=== PATIENT | female | born 1950 | race Caucasian/White ===

== ENCOUNTER → 2016-11-30 | Outpatient (CLI) | payer MEDICARE, OTHER | LOC: MW.CHFP 08:00 | PROVIDERS: ATTEND Emergency Medicine | DX: N81.10 Cystocele, unspecified (principal); Z23 Encounter for immunization | CPT/HCPCS: 90670; G0009; G0463 ==

== ENCOUNTER 2017-01-31 07:41 | Day surgery (SDC) | payer MEDICARE, OTHER ==
[~2017-01-31 07:41] MED LIST: Lactated Ringers 1,000 ML IV SCH
[2017-01-31] MEDS ORDERED: Bupivacaine 0.25% 10 ML SDV ONE (08:38)
[2017-01-31] MEDS ORDERED: Lidocaine 1% with EPINEPHrine 1:100,000 20 ML MDV ONE (08:38)
[2017-01-31] MEDS ORDERED: Fluorescein 5 ML Vial ONE (08:38)
--- NOTE | 2017-01-31 08:48 | PCM.PREANE ---
Preanesthetic Assessment - Anesthesia/Transfusion/Family Hx Anesthesia History: Prior Anesthesia Without Reaction Family History of Anesthesia Reaction: No Transfusion History: Prior Transfusion Without Reaction Intubation History: Unknown - Review of Systems General: No Symptoms Pulmonary: No Symptoms Cardiovascular: No Symptoms Gastrointestinal: No Symptoms Neurological: No Symptoms Other: Reports: None - Physical Assessment NPO Status Date: 01/30/17 NPO Status Time: 23:00 O2 Sat by Pulse Oximetry: 96 Respiratory Rate: 16 Vital Signs: Last Vital Signs Temp 36.5 C 01/31/17 08:09 Pulse 71 01/31/17 08:09 Resp 16 01/31/17 08:09 BP 123/68 01/31/17 08:09 Pulse Ox 96 01/31/17 08:09 Height: 1.68 m Weight: 83.915 kg ASA Class: 2 Mental Status: Alert & Oriented x3 Airway Class: Mallampati = 2 Dentition: Reports: Dentures (upper and lower) Thyro-Mental Finger Breadths: 3 Mouth Opening Finger Breadths: 3 ROM/Head Extension: Full Lungs: Clear to Auscultation, Normal Respiratory Effort Cardiovascular: Regular Rate, Regular Rhythm - Allergies Allergies/Adverse Reactions: Allergies Allergy/AdvReac Type Severity Reaction Status Date / Time aspirin Allergy Hives Verified 04/18/15 20:59 Penicillins Allergy Cannot Verified 04/18/15 20:59 Remember tape Allergy Redness Uncoded 01/25/17 07:45 - Blood Blood Available: No - Anesthesia Plan Pre-Op Medication Ordered: None - Acknowledgements Anesthesia Type Planned: General Anesthesia Pt an Appropriate Candidate for the Planned Anesthesia: Yes Alternatives and Risks of Anesthesia Discussed w Pt/Guardian: Yes Pt/Guardian Understands and Agrees with Anesthesia Plan: Yes PreAnesthesia Questionnaire HEENT History: Reports: Glaucoma, Other (See Below) Other HEENT History: upper and lower dentures Gastrointestinal History: Reports: Colon Polyp, Diverticulosis, Other (See Below ) (dysphagia) Genitourinary History: Reports: Other (See Below) Other Genitourinary History: stress incontinence 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: Reports: Musculoskeletal History: Reports: Fracture Other Musculoskeletal History: hx fx arm Neurological History: Reports: Migraines, Other (See Below) (restless leg syndrome) Psychiatric History: Reports: Anxiety Endocrine/Metabolic History: Reports: Obesity/BMI 30+, Other (See Below) ( multinodular goiter) Hematologic History: Reports: Blood Transfusion(s), Iron Deficiency Other Dermatologic History: seborrheic keratosis - Past Surgical History Head Surgeries/Procedures: Reports: None GI Surgical History: Reports: Appendectomy, Cholecystectomy, Colonoscopy, EGD Female Surgical History: Reports: Breast Biopsy, Hysterectomy, Tubal Ligation Other Female Surgeries/Procedures: hx bladder repair, anterior colporrhaphy Endocrine Surgical History: Reports: Other (See Below) Other Endocrine Surgeries/Procedures: sub total thyroidectomy Oncologic Surgical History: Reports: Biopsy of Breast - SUBSTANCE USE Smoking Status *Q: Never Smoker Second Hand Smoke Exposure: No Recreational Drug Use History: No - HOME MEDS Home Medications: Home Meds Amitriptyline [Elavil] 20 mg PO DAILY 01/25/17 [History] Cholecalciferol (Vitamin D3) [Vitamin D3] 1,000 units PO DAILY 01/25/17 [History ] Cyanocobalamin (Vitamin B12) [Vitamin B12] 5,000 mcg PO DAILY 01/25/17 [History] Latanoprost [Xalatan 0.005% Ophth Soln] 1 drop EYEBOTH BEDTIME 01/25/17 [History ] PARoxetine [Paxil] 20 mg PO DAILY 01/25/17 [History] - CURRENT (IN HOUSE) MEDS Current Meds: Current Medications Lactated Ringer's (Ringers, Lactated) 1,000 mls @ 150 mls/hr IV ASDIRECTED [facility] Last Admin: 01/31/17 08:11 Dose: 150 mls/hr Discontinued Medications Bupivacaine HCl (Sensorcaine-Mpf 0.25%) Confirm Administered Dose 10 ml .ROUTE .STK-MED ONE Stop: 01/31/17 08:39 Fluorescein Sodium (Ak-Fluor) Confirm Administered Dose 5 ml .ROUTE .STK-MED ONE Stop: 01/31/17 08:39 Lidocaine/Epinephrine (Xylocaine 1% With Epinephrine 1:100,000) Confirm Administered Dose 20 ml .ROUTE .STK-MED ONE Stop: 01/31/17 08:39
[2017-01-31] MEDS ORDERED: Lidocaine 2% 5 ML SDV ONE (09:27)
[2017-01-31] MEDS ORDERED: Propofol 200 MG/20 ML SDV ONE ×2 (09:28→10:19)
[2017-01-31] MEDS ORDERED: fentaNYL 250 MCG/5 ML SDV ONE (09:28)
[2017-01-31] MEDS ORDERED: Midazolam 1 MG/ML 2 ML SDV ONE (09:28)
[2017-01-31] MEDS ORDERED: Octyl 2-Cyanoacrylate 1 Tube ONE (09:29)
[2017-01-31] MEDS ORDERED: Neomycin/Polymyxin B Bladder Irrigation 1 ML Amp ONE (09:30)
--- NOTE | 2017-01-31 11:10 | PCM.OPNOTE ---
- General Post-Op/Procedure Note Date of Surgery/Procedure: 01/31/17 Operative Procedure(s): anterior colporrhaphy with tension free vaginal taping Findings: second degree cystocele, urethral hypermobility. Cystoscopy showed no trauma to bladder mucosa Pre Op Diagnosis: symptomatic cystocele with urethral hypermobility and intrinsic sphincter deficiency. Post-Op Diagnosis: Same Anesthesia Technique: MAC Primary Surgeon: Amber Snider Secondary Surgeon: Eve Atkinson Anesthesia Provider: Jg Servin Pig Machine Operator Helper: Naseem Bermudez Pathology: none Fluid Replacement, Intraop: 1,000 EBL in mLs: 150 Drain/Tube Comments:: vaginal packing placed. Complications: None Known Condition: Good
[2017-01-31] MEDS ORDERED: Lactated Ringers 1,000 ML IV SCH (11:15)
[2017-01-31] MEDS ORDERED: Promethazine 25 MG/ML SDV IM PRN (11:15)
[2017-01-31] MEDS ORDERED: Ondansetron 4 MG/2 ML SDV IVPUSH PRN (11:15)
[2017-01-31] MEDS: fentaNYL 100 MCG/2 ML SDV IVPUSH PRN ×2 (11:20→11:29)
--- NOTE | 2017-01-31 11:45 | PCM.POSTAN ---
POST ANESTHESIA ASSESSMENT - MENTAL STATUS Mental Status: Alert, Oriented - RESPIRATORY Respiratory Status: respiratory rate WNL, Airway Patent, O2 Saturation Stable - CARDIOVASCULAR CV Status: Pulse Rate WNL - GASTROINTESTINAL GI Status: No Symptoms - PAIN Pain Score: 4 - POST OP HYDRATION Hydration Status: Adequate & Stable - OBSERVATIONS Free Text/Narrative:: no anesthesia problems
[2017-01-31] MEDS: Morphine 2 MG/ML Syringe IVPUSH PRN ×2 (12:41→15:49)
[2017-01-31] MEDS: Acetaminophen/oxyCODONE 325-5 MG Tab PO PRN ×2 (13:29→18:38)
--- NOTE | 2017-01-31 14:30 | OR ---
SURGEON: Amber Snider M.D. DATE OF PROCEDURE: 01/31/2017 PREOPERATIVE DIAGNOSIS: Symptomatic cystocele stress urinary incontinence with intrinsic sphincter deficiency. ANESTHESIA: MAC. 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 Atkinson IV FLUIDS: 1000 mL crystalloid. ESTIMATED BLOOD LOSS: 150 mL. COMPLICATIONS: None known. DISPOSITION: Stable to recovery. FINDINGS: No evidence of any trauma to the bladder mucosa on cystoscopy. Additionally, there was a second-degree cystocele, which had been repaired. BRIEF HISTORY: This is a 67-year-old female. She has a history of hysterectomy with anterior colporrhaphy in the remote past. She has had worsening stress urinary incontinence to the point where she is having to wear daily large poise pads. Evaluation revealed gross stress urinary incontinence and normal bladder capacity. She has been placed on Myrbetriq with some improvement of urgency symptoms, but persistent stress symptoms. She had urethral hypermobility with suspected intrinsic sphincter deficiency based on examination. She does have a small cystocele. I explained to her that this may not be required to be repaired, however, it is present and she wants to have it repaired at the time of the TVT. She was therefore consented for anterior colporrhaphy with transvaginal taping. She understands the risks of bleeding, infection, injury to bowel, bladder, blood vessels, ureter or other organs, risk of thromboembolic event, risk of urinary retention, and risk of approximately 30% of going home with a catheter. Understanding all these risks, she does desire to proceed. DESCRIPTION OF PROCEDURE: With the patient in dorsal lithotomy position, under adequate IV sedation, the perineum and vagina were prepped with Betadine and draped in usual fashion for vaginal surgery. SCDs were in place. She had received 2 g of Ancef IV and an appropriate time-out was held. Note was made that at the time of prep, there was a small laceration in the very atrophic vaginal mucosa and she was bleeding from this area. The weighted speculum was placed posteriorly approximately 2 cm cephalad from the urethral meatus. Allis clamp was placed. Hydrodissection was performed and an incision was made from this point upwards to the extent of the cystocele. The muscularis layer was then dissected from the overlying vaginal mucosa and reapproximated in the midline using multiple interrupted mattress sutures of 2-0 Polysorb. The vaginal mucosa was then reapproximated in the midline using a running suture of 0 Polysorb. This being completed, I did proceed with injection of normal saline diluted 2:1 with 20 mL of normal saline, 10 mL of 0.25% Marcaine, and 10 mL of 1% lidocaine with epinephrine. This was placed in the suburethral subvaginal mucosa area extending out toward the pubic ramus and also in the area of the retropubic space and the subcutaneous tissue immediately cephalad from the pubic symphysis. The landmarks were made 1 cm cephalad and 1.5 cm from midline of the pubic symphysis and stab incisions were made with an 11 blade scalpel. The vaginal mucosa was incised approximately 1 cm cephalad from the urethral meatus and extending 0.8 cm. Note was made of copious bleeding immediately upon incision of the vaginal mucosa. I did confirm that based on her chart she was taking no blood thinners. She is allergic to aspirin, she does not take ibuprofen, and there were no other medications that would increase her risk for bleeding. Therefore, I did choose to proceed with the taping. The dissection was performed with Metzenbaum scissors extending laterally beneath the vaginal mucosa towards the pubic ramus on the right and the left. With this being completed, the bladder had been completely drained. The catheter guide was placed into the catheter and the guide and catheter were placed into the bladder. The bladder was retracted towards the left. The right arm of the TVT tape with the trocar was guided through the vaginal mucosa laterally towards the mid clavicular line until the endopelvic fascia had been pierced and the handle was dropped. The needle was placed immediately posterior to the pubic symphysis until it had reached the skin incision. It was partially pulled through, but the needle was retained. I confirmed that there was no trauma to the lateral vaginal mucosa. I also performed a cystoscopy using 500 mL of sterile water to distend the bladder and there was no evidence of any trauma to the bladder mucosa. Therefore, the handle was removed, the needle was pulled through, the tape was cut from the needle, and retained with a Nazanin clamp. This was repeated on the opposite side. Again, draining the bladder, retracting the bladder toward the right, and the left arm of the TVT was placed without any difficulty. The cystoscopy was repeated again using 500 mL of sterile water and there was no evidence of any trauma to the bladder mucosa, therefore, the tape was pulled through. After the handle had been released, the bladder was refilled with 300 mL of nystatin solution. Nystatin solution was again placed into the sheath of the tape and the tape was adjusted until there was minimal leakage with coughing. With this being completed, a 24-Afghan dilator was placed through the urethral meatus with no resistance. Crede maneuver was performed without any leakage; therefore, the curved Weller scissors were placed between the tape and the urethra. The sheath of the tape was removed. The scissors were removed. The tape was trimmed beneath the skin. The skin was closed with skin glue. The vaginal mucosa incision was closed with a running locked suture of 3-0 Polysorb and the vagina was packed and a clean catheter was replaced into the bladder. Final sponge, needle, and instrument counts were reported as correct. There were no known complications. The patient was transferred to recovery in good condition. GRETCHEN MARTIN /[id number]
--- NOTE | 2017-01-31 18:42 | PCM.SURGPN ---
- General Info Date of Service: 01/31/17 POD#: 0 Functional Status: Reports: Pain Controlled, Tolerating Diet, Ambulating. Denies: Urinating (catheter just removed, starting voiding trial. ) - Review of Systems General: Reports: No Symptoms HEENT: Reports: No Symptoms Pulmonary: Reports: No Symptoms Cardiovascular: Reports: No Symptoms Gastrointestinal: Reports: No Symptoms Genitourinary: Reports: No Symptoms Musculoskeletal: Reports: No Symptoms Skin: Reports: No Symptoms Neurological: Reports: No Symptoms Psychiatric: Reports: No Symptoms - Patient Data Vitals - Most Recent: Last Vital Signs Temp 36.7 C 01/31/17 15:45 Pulse 72 01/31/17 15:45 Resp 18 01/31/17 15:45 BP 94/62 01/31/17 15:45 Pulse Ox 97 01/31/17 15:45 Weight - Most Recent: 83.915 kg I&O - Last 24 Hours: Intake & Output 01/31/17 01/31/17 01/31/17 06:59 14:59 22:59 Intake Total 2450 600 Output Total 65 600 Balance 2385 0 Med Orders - Current: Current Medications Amitriptyline HCl (Elavil) 20 mg PO DAILY [facility] Cholecalciferol (Vitamin D3) 1,000 units PO DAILY [facility] Fentanyl (Sublimaze) 50 mcg IVPUSH Q5M PRN PRN Reason: Pain (severe 7-10) Stop: 02/01/17 09:56 Last Admin: 01/31/17 11:29 Dose: 50 mcg Lactated Ringer's (Ringers, Lactated) 1,000 mls @ 125 mls/hr IV ASDIRECTED [facility] Latanoprost (Xalatan 0.005% Ophth Soln) 0 ml EYEBOTH BEDTIME [facility] Morphine Sulfate (Morphine) 2 mg IVPUSH Q2H PRN PRN Reason: Pain (severe 7-10) Last Admin: 01/31/17 15:49 Dose: 2 mg Non-Formulary Medication (Cyanocobalamin (Vitamin B12)) 5,000 mcg PO DAILY [facility] Ondansetron HCl (Zofran) 4 mg IVPUSH Q6H PRN PRN Reason: Nausea/Vomiting Oxycodone/Acetaminophen (Percocet 325-5 Mg) 1 tab PO Q4H PRN PRN Reason: Pain (moderate 4-6) Last Admin: 01/31/17 13:29 Dose: 1 tab Paroxetine HCl (Paxil) 20 mg PO DAILY [facility] Promethazine HCl (Phenergan) 25 mg IM Q6H PRN PRN Reason: Nausea/Vomiting Discontinued Medications Bupivacaine HCl (Sensorcaine-Mpf 0.25%) Confirm Administered Dose 10 ml .ROUTE .STK-MED ONE Stop: 01/31/17 08:39 Fentanyl (Sublimaze) Confirm Administered Dose 250 mcg .ROUTE .STK-MED ONE Stop: 01/31/17 09:29 Fluorescein Sodium (Ak-Fluor) Confirm Administered Dose 5 ml .ROUTE .STK-MED ONE Stop: 01/31/17 08:39 Lactated Ringer's (Ringers, Lactated) 1,000 mls @ 150 mls/hr IV ASDIRECTED [facility] Last Admin: 01/31/17 08:11 Dose: 150 mls/hr Lidocaine (Xylocaine-Mpf 2%) Confirm Administered Dose 10 ml .ROUTE .STK-MED ONE Stop: 01/31/17 09:28 Lidocaine/Epinephrine (Xylocaine 1% With Epinephrine 1:100,000) Confirm Administered Dose 20 ml .ROUTE .STK-MED ONE Stop: 01/31/17 08:39 Midazolam HCl (Versed 1 Mg/Ml) Confirm Administered Dose 2 mg .ROUTE .STK-MED ONE Stop: 01/31/17 09:29 Neomycin/Polymyxin (Neosporin Gu Irrigant) Confirm Administered Dose 1 ml .ROUTE .STK-MED ONE Stop: 01/31/17 09:31 Octyl Cyanoacrylate (Dermabond Advance) Confirm Administered Dose 1 applic .ROUTE .STK-MED ONE Stop: 01/31/17 09:30 Propofol (Diprivan 20 Ml) Confirm Administered Dose 400 mg .ROUTE .STK-MED ONE Stop: 01/31/17 09:29 Propofol (Diprivan 20 Ml) Confirm Administered Dose 200 mg .ROUTE .STK-MED ONE Stop: 01/31/17 10:20 - Exam General: Alert, Oriented HEENT: Pupils Equal Neck: Supple GI/Abdominal Exam: Soft, Non-Tender, No Organomegaly, No Distention, No Abnormal Bruit, No Mass, Pelvis Stable Extremities: Normal Inspection, Normal Range of Motion, Non-Tender, No Pedal Edema, Normal Capillary Refill Skin: Warm, Dry, Intact Neurological: No New Focal Deficit Psy/Mental Status: Alert, Normal Affect, Normal Mood Physical Findings Comment:: vaginal packing removed, minimal blood. - Problem List & Annotations (1) DAVIN (stress urinary incontinence, female) SNOMED Code(s): 41354510 Code(s): N39.3 - STRESS INCONTINENCE (FEMALE) (MALE) Status: Acute Current Visit: Yes (2) Cystocele SNOMED Code(s): 179402350, 583989162 Code(s): SGB4866 - Status: Acute Current Visit: Yes - Problem List Review Problem List Initiated/Reviewed/Updated: Yes - My Orders Last 24 Hours: Active Orders 24 hr Category Date Time Status Patient Status [ADT] Routine ADT 01/31/17 11:19 Active Antiembolic Devices [RC] PER UNIT ROUTINE Care 01/31/17 11:20 Active Notify Provider Intake and Out [RC] ASDIRECTED Care 01/31/17 11:19 Active Notify Provider Vital Signs [RC] ASDIRECTED Care 01/31/17 11:19 Active Oxygen Therapy [RC] ASDIRECTED Care 01/31/17 11:19 Active RT Incentive Spirometry [RC] Q2HWA Care 01/31/17 11:19 Active Ready for Discharge [RC] PER UNIT ROUTINE Care 01/31/17 18:38 Ordered Up With Assistance [RC] PER UNIT ROUTINE Care 01/31/17 11:19 Active Up ad Hemalatha [RC] PER UNIT ROUTINE Care 01/31/17 11:19 Active Urinary Catheter Removal [RC] Per Unit Routine Care 01/31/17 11:19 Active Vital Signs [RC] PER UNIT ROUTINE Care 01/31/17 11:19 Active Regular Diet [DIET] Diet 01/31/17 Dinner Active Acetaminophen/oxyCODONE [Percocet 325-5 MG] Med 01/31/17 11:15 Active 1 tab PO Q4H PRN Amitriptyline [Elavil] Med 02/01/17 09:00 Active 20 mg PO DAILY Cholecalciferol (Vitamin D3) [Vitamin D3] Med 02/01/17 09:00 Active 1,000 units PO DAILY Cyanocobalamin (Vitamin B12) Med 02/01/17 09:00 Active 5,000 mcg PO DAILY Lactated Ringers [Ringers, Lactated] 1,000 ml Med 01/31/17 11:15 Active IV ASDIRECTED Latanoprost [Xalatan 0.005% Ophth Soln] Med 01/31/17 21:00 Active 0 ml EYEBOTH BEDTIME [facility] Med 01/31/17 11:15 Active 2 mg IVPUSH Q2H PRN Ondansetron [Zofran] Med 01/31/17 11:15 Active 4 mg IVPUSH Q6H PRN PARoxetine [Paxil] Med 02/01/17 09:00 Active 20 mg PO DAILY Promethazine [Phenergan] Med 01/31/17 11:15 Active 25 mg IM Q6H PRN fentaNYL [Sublimaze] Med 01/31/17 09:56 Active 50 mcg IVPUSH Q5M PRN Peripheral IV Discontinue [OM.PC] Routine Oth 01/31/17 11:19 Ordered Sequential Compression Device [OM.PC] Per Unit Routine Oth 01/31/17 11:19 Ordered Resuscitation Status Routine Resus Stat 01/31/17 11:15 Ordered Medication Orders Amitriptyline HCl (Elavil) 20 mg PO DAILY [facility] Cholecalciferol (Vitamin D3) 1,000 units PO DAILY [facility] Fentanyl (Sublimaze) 50 mcg IVPUSH Q5M PRN PRN Reason: Pain (severe 7-10) Stop: 02/01/17 09:56 Last Admin: 01/31/17 11:29 Dose: 50 mcg Admin: 01/31/17 11:20 Dose: 50 mcg Lactated Ringer's (Ringers, Lactated) 1,000 mls @ 125 mls/hr IV ASDIRECTED [facility] Latanoprost (Xalatan 0.005% Ophth Soln) 0 ml EYEBOTH BEDTIME [facility] Morphine Sulfate (Morphine) 2 mg IVPUSH Q2H PRN PRN Reason: Pain (severe 7-10) Last Admin: 01/31/17 15:49 Dose: 2 mg Admin: 01/31/17 12:41 Dose: 2 mg Non-Formulary Medication (Cyanocobalamin (Vitamin B12)) 5,000 mcg PO DAILY [facility] Ondansetron HCl (Zofran) 4 mg IVPUSH Q6H PRN PRN Reason: Nausea/Vomiting Oxycodone/Acetaminophen (Percocet 325-5 Mg) 1 tab PO Q4H PRN PRN Reason: Pain (moderate 4-6) Last Admin: 01/31/17 13:29 Dose: 1 tab Paroxetine HCl (Paxil) 20 mg PO DAILY [facility] Promethazine HCl (Phenergan) 25 mg IM Q6H PRN PRN Reason: Nausea/Vomiting - Assessment Assessment (Free Text/Narrative):: POD#0 after anterior colporrhaphy with TVT. Stable, tolerating diet, ambulating. Pain improved after vaginal packing removed. - Plan Plan (Free Text/Narrative):: Voiding trial. Nurse will call me with result. Dismiss to home tonight (with catheter if she fails voiding trial) Continue Myrbetriq, may use Percocet for pain. Discharge instructions reviewed
[2017-01-31 20:15] VITALS: BP 96/66
[2017-01-31] MEDS ORDERED: Latanoprost 0.005% Ophth Soln 2.5 ML Bottle EYEBOTH SCH (21:00)
[2017-02-01] MEDS ORDERED: CYANOCOBALAMIN 5000 MCG PO SCH (09:00)
[2017-02-01] MEDS ORDERED: PARoxetine 20 MG Tab PO SCH (09:00)
[2017-02-01] MEDS ORDERED: Amitriptyline 10 MG Tab PO SCH (09:00)
[2017-02-01] MEDS ORDERED: Cholecalciferol (Vitamin D3) 1,000 Unit Tab PO SCH (09:00)
== END 2017-01-31 20:30 | disposition home or self-care (01) ==
LOC: MW.SDS 07:41 → MW.OB 11:19 → MW.SDS 20:30
PROVIDERS: ATTEND Obstetrics & Gynecology
DX: N39.3 Stress incontinence (female) (male) (principal); N36.43 Combined hypermobility of urethra and intrinsic sphincter deficiency; N81.10 Cystocele, unspecified; R11.0 Nausea; F41.9 Anxiety disorder, unspecified; G47.00 Insomnia, unspecified; G25.81 Restless legs syndrome; Z90.49 Acquired absence of other specified parts of digestive tract; Z98.51 Tubal ligation status; Z90.710 Acquired absence of both cervix and uterus; Z98.890 Other specified postprocedural states; Z88.6 Allergy status to analgesic agent; Z88.0 Allergy status to penicillin; Z91.09 Other allergy status, other than to drugs and biological substances
CPT/HCPCS: 57240; 57288; A9270; J2250; J2270; J3010; J7120; 00860; C1771; J2704

== ENCOUNTER 2019-07-30 06:32 | Day surgery (SDC) | payer MEDICARE, OTHER ==
[~2019-07-30 06:32] MED LIST changes: +Sodium Chloride 0.9% 10 ML SDV IV PRN; +Sodium Chloride 0.9% 10 ML Syringe FLUSH PRN; +Sodium Chloride 0.9% 2.5 ML Syringe FLUSH PRN
[2019-07-30] MEDS ORDERED: fentaNYL 100 MCG/2 ML SDV ONE (06:59)
[2019-07-30] MEDS ORDERED: Propofol 200 MG/20 ML SDV ONE ×2 (06:59→08:25)
[2019-07-30] MEDS ORDERED: Midazolam 1 MG/ML 2 ML SDV ONE (06:59)
--- NOTE | 2019-07-30 07:10 | PCM.PREANE ---
Preanesthetic Assessment - Anesthesia/Transfusion/Family Hx Anesthesia History: Prior Anesthesia Without Reaction Other Type of Anesthesia Reaction Comment: "mother had hard time waking up after surgery" Family History of Anesthesia Reaction: No Transfusion History: Prior Transfusion Without Reaction Intubation History: Unknown - Review of Systems General: No Symptoms Pulmonary: No Symptoms Cardiovascular: No Symptoms Gastrointestinal: Abdominal Pain, Other (h/o multiple polyps, change in bowel habits) Neurological: No Symptoms Other: Reports: None - Physical Assessment Vital Signs: Last Vital Signs Temp 36.7 C 07/30/19 06:45 Pulse 85 07/30/19 06:45 Resp 14 07/30/19 06:45 BP 116/83 07/30/19 06:45 Pulse Ox 97 07/30/19 06:45 Height: 5 ft 7 in Weight: 84.368 kg ASA Class: 2 Mental Status: Alert & Oriented x3 Airway Class: Mallampati = 2 Dentition: Reports: Dentures (upper) Thyro-Mental Finger Breadths: 3 Mouth Opening Finger Breadths: 2 ROM/Head Extension: Limited/Partial Lungs: Clear to Auscultation, Normal Respiratory Effort Cardiovascular: Regular Rate, Regular Rhythm - Allergies Allergies/Adverse Reactions: Allergies Allergy/AdvReac Type Severity Reaction Status Date / Time aspirin Allergy Hives Verified 07/24/19 12:44 Penicillins Allergy Hives Verified 07/24/19 12:44 tape Allergy Redness Uncoded 01/25/17 07:45 - Blood Blood Available: No - Anesthesia Plan Pre-Op Medication Ordered: None - Acknowledgements Anesthesia Type Planned: MAC Pt an Appropriate Candidate for the Planned Anesthesia: Yes Alternatives and Risks of Anesthesia Discussed w Pt/Guardian: Yes Pt/Guardian Understands and Agrees with Anesthesia Plan: Yes PreAnesthesia Questionnaire HEENT History: Reports: Glaucoma, Other (See Below) Other HEENT History: upper and lower dentures, glasses for reading Cardiovascular History: Reports: Heart Murmur Other Cardiovascular History: recently diagnosed heart murmur Gastrointestinal History: Reports: Colon Polyp, Diverticulosis Genitourinary History: Reports: None 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: Reports: Musculoskeletal History: Reports: Fracture, Osteoporosis Other Musculoskeletal History: hx fx arm Neurological History: Reports: Other (See Below) Other Neuro History: restless leg syndrome Psychiatric History: Reports: Anxiety Endocrine/Metabolic History: Reports: Osteopenia, Osteoporosis, Other (See Below ) (multinodular goiter) Hematologic History: Reports: Blood Transfusion(s) Immunologic History: Reports: None Oncologic (Cancer) History: Reports: None Dermatologic History: Reports: None - Past Surgical History Head Surgeries/Procedures: Reports: None HEENT Surgical History: Reports: Cataract Surgery GI Surgical History: Reports: Appendectomy, Cholecystectomy, Colonoscopy (7 polyps last year), EGD Female Surgical History: Reports: Breast Biopsy, Hysterectomy, Tubal Ligation Other Female Surgeries/Procedures: hx cystocele repair, anterior colporrhaphy , Endocrine Surgical History: Reports: Thyroidectomy (subtotal), Other (See Below) Other Endocrine Surgeries/Procedures: nodule removed from thyroidectomy Musculoskeletal Surgical History: Reports: Other (See Below) (foot surgery) Other Musculoskeletal Surgeries/Procedures:: surgery for "tennis elbow" - SUBSTANCE USE Smoking Status *Q: Former Smoker Tobacco Use Within Last Twelve Months: No Recreational Drug Use History: No - HOME MEDS Home Medications: Home Meds Amitriptyline [Elavil] 3 tab PO BEDTIME PRN 01/25/17 [History] Latanoprost [Xalatan 0.005% Ophth Soln] 1 drop EYEBOTH BEDTIME 01/25/17 [History ] PARoxetine [Paxil] 20 mg PO DAILY 01/25/17 [History] - CURRENT (IN HOUSE) MEDS Current Meds: Current Medications Lactated Ringer's (Ringers, Lactated) 1,000 mls @ 125 mls/hr IV ASDIRECTED [facility] Last Admin: 07/30/19 06:55 Dose: 125 mls/hr Sodium Chloride (Saline Flush) 10 ml FLUSH ASDIRECTED PRN PRN Reason: Keep Vein Open Sodium Chloride (Saline Flush) 2.5 ml FLUSH ASDIRECTED PRN PRN Reason: Keep Vein Open Sodium Chloride (Saline Flush) 10 ml FLUSH ASDIRECTED PRN PRN Reason: Keep Vein Open Sodium Chloride (Saline Flush) 2.5 ml FLUSH ASDIRECTED PRN PRN Reason: Keep Vein Open Sodium Chloride (Normal Saline) 10 ml IV ASDIRECTED PRN PRN Reason: IV Use Discontinued Medications Fentanyl (Sublimaze) Confirm Administered Dose 100 mcg .ROUTE .STK-MED ONE Stop: 07/30/19 07:00 Midazolam HCl (Versed 1 Mg/Ml) Confirm Administered Dose 2 mg .ROUTE .STK-MED ONE Stop: 07/30/19 07:00 Propofol (Diprivan 20 Ml) Confirm Administered Dose 200 mg .ROUTE .STK-MED ONE Stop: 07/30/19 07:00
--- NOTE | 2019-07-30 08:49 | PCM.OPNOTE ---
- General Post-Op/Procedure Note Date of Surgery/Procedure: 07/30/19 Operative Procedure(s): Diagnostic colonoscopy with polypectomy Findings: 1 transverse colon polyp, 2 sigmoid colon polyps, 2 descending colon polyps Pre Op Diagnosis: History of multiple colon polyps Post-Op Diagnosis: Multiple colon polyps Anesthesia Technique: EVON Primary Surgeon: Vangie Foreman Condition: Good
--- NOTE | 2019-07-30 08:56 | PCM.POSTAN ---
POST ANESTHESIA ASSESSMENT - MENTAL STATUS Mental Status: Alert, Oriented - VITAL SIGNS Vital Signs: Last Vital Signs Temp 36.7 C 07/30/19 06:45 Pulse 68 07/30/19 08:50 Resp 10 L 07/30/19 08:50 BP 93/60 07/30/19 08:50 Pulse Ox 92 L 07/30/19 08:50 - RESPIRATORY Respiratory Status: Respiratory Rate WNL, Airway Patent, O2 Saturation Stable - CARDIOVASCULAR CV Status: Pulse Rate WNL, Blood Pressure Stable - GASTROINTESTINAL GI Status: No Symptoms - PAIN Pain Score: 0 - POST OP HYDRATION Hydration Status: Adequate & Stable - OBSERVATIONS Free Text/Narrative:: No anesthesia problems
[2019-07-30 09:10] VITALS: BP 101/68; PULSE 69
--- NOTE | 2019-07-30 09:42 | PCM48HPAN ---
Post Anesthesia Note - EVALUATION WITHIN 48HRS OF ANESTHETIC Vital Signs in Normal Range: Yes Patient Participated in Evaluation: Yes Respiratory Function Stable: Yes Airway Patent: Yes Cardiovascular Function Stable: Yes Hydration Status Stable: Yes Pain Control Satisfactory: Yes Nausea and Vomiting Control Satisfactory: Yes Mental Status Recovered: Yes Vital Signs: Last Vital Signs Temp 36.4 C 07/30/19 08:55 Pulse 69 07/30/19 08:55 Resp 14 07/30/19 08:55 BP 101/68 07/30/19 08:55 Pulse Ox 96 07/30/19 08:55 - COMMENTS/OBSERVATIONS Free Text/Narrative:: no anesthesia problems
--- NOTE | 2019-07-31 15:38 | OR ---
SURGEON: VANGIE FOREMAN MD DATE OF PROCEDURE: 07/30/2019 PREOPERATIVE DIAGNOSIS: History of colon polyps. POSTOPERATIVE DIAGNOSES: 1. Grade 4 hemorrhoids. 2. Diverticulosis. 3. Transverse colon polyp x1. 4. Sigmoid colon polyps x2. 5. Descending colon polyps x2. PROCEDURE PERFORMED: Diagnostic colonoscopy with polypectomy. PRIMARY SURGEON: Vangie Foreman MD. ANESTHESIA: MAC. INSTRUMENT USED: Olympus colonoscope. EXTENT OF EXAM: To the cecum. PREPARATION: Good. LIMITATIONS: None. INDICATIONS FOR EXAMINATION: The patient is a 69-year-old female who was found to have multiple polyps throughout her colon last year. The decision was made to repeat a scope in 1 year given the amount of polyps. I explained the procedure; expected perioperative course; and the risks including bleeding, infection, or damage to surrounding structures. The patient verbalized understanding and wishes to proceed. PROCEDURE IN DETAIL: The patient was brought into the endoscopy suite and placed in a left lateral decubitus position. A time-out was completed verifying the patient's name, age, date of , allergies, and procedure to be performed. Monitored anesthesia care was induced and continuous oxygen was provided via nasal cannula throughout the procedure. After adequate sedation was achieved, a digital rectal exam was performed. This exam revealed grade 4 hemorrhoids. A well-lubricated colonoscope was inserted in the rectum and advanced under direct visualization to the level of the cecum. The cecum was identified by both visual and anatomic landmarks. A photograph was taken of the cecal cap; however, I was unable to retroflex the scope within the cecum. The scope was then fully withdrawn while examining the color, texture, anatomy, and integrity of the mucosa from the cecum to the anal canal. The patient was found to have diverticulosis throughout the sigmoid colon. She was found to have one sessile polyp in the distal transverse colon, two in the sigmoid colon, and two in the descending colon. All of these were similar in size, in nature. They were removed using cold biopsy forceps as well as a cold wire loop. Hemostasis was achieved after each of the polypectomies. The scope was then brought into the rectum and retroflexed to allow visualization of the anal canal opening. The scope was then straightened out and fully withdrawn. The cecum to anus time was 19 minutes. The patient tolerated the procedure well and was transferred to the PACU in stable condition. ENDOSCOPIC DIAGNOSES: 1. Grade 4 hemorrhoids. 2. Diverticulosis. 3. Transverse colon polyp x1. 4. Sigmoid colon polyps x2. 5. Descending colon polyps x2. RECOMMENDATIONS: Follow up in clinic in 2 weeks. HARSHA MARTIN /[id number]
== END 2019-07-30 09:21 | disposition home or self-care (01) ==
LOC: MW.SDS 06:32
PROVIDERS: ATTEND Surgery
DX: Z12.11 Encounter for screening for malignant neoplasm of colon (principal); D12.3 Benign neoplasm of transverse colon; K63.5 Polyp of colon; K64.3 Fourth degree hemorrhoids; K57.30 Diverticulosis of large intestine without perforation or abscess without bleeding; F41.9 Anxiety disorder, unspecified; G43.909 Migraine, unspecified, not intractable, without status migrainosus; Z88.6 Allergy status to analgesic agent; Z88.0 Allergy status to penicillin; Z79.899 Other long term (current) drug therapy; Z87.891 Personal history of nicotine dependence; Z86.010 Personal history of colon polyps
CPT/HCPCS: 45380; J2250; J2704; J3010; J7120; 00811

== ENCOUNTER 2022-06-04 15:04 | Emergency (ER) | payer MEDICARE, OTHER ==
[2022-06-04] MEDS ORDERED: HYDROmorphone 1 MG/ML Syringe IM ONE (15:21)
[2022-06-04] MEDS ORDERED: Ondansetron 4 MG Tab.DIS PO ONE (15:21)
[2022-06-04 16:55] VITALS: BP 100/59
[2022-06-04 17:15] VITALS: PULSE 66
== END 2022-06-04 17:15 | disposition home or self-care (01) ==
LOC: MW.ED 15:04
DX: S09.90XA Unspecified injury of head, initial encounter (principal); S70.02XA Contusion of left hip, initial encounter; M54.2 Cervicalgia; Z88.8 Allergy status to other drugs, medicaments and biological substances; Z88.0 Allergy status to penicillin; Z91.048 Other nonmedicinal substance allergy status; W11.XXXA Fall on and from ladder, initial encounter
CPT/HCPCS: 70450; 72125; 72192; 96372; 99283; A9270; J1170

== ENCOUNTER 2022-09-29 08:56 | Day surgery (SDC) | payer MEDICARE, OTHER ==
[~2022-09-29 08:56] MED LIST changes: -Sodium Chloride 0.9% 10 ML SDV IV PRN; +Sodium Chloride 0.9% 20 ML SDV IV PRN
[2022-09-29] MEDS ORDERED: Propofol 200 MG/20 ML SDV ONE (10:01)
[2022-09-29] MEDS ORDERED: Lidocaine 2% 5 ML SDV ONE (10:01)
[2022-09-29 11:02] VITALS: BP 98/56; PULSE 67
== END 2022-09-29 11:20 | disposition home or self-care (01) ==
LOC: MW.SDS 08:56
PROVIDERS: ATTEND Surgery
DX: Z12.11 Encounter for screening for malignant neoplasm of colon (principal); D12.2 Benign neoplasm of ascending colon; D12.3 Benign neoplasm of transverse colon; D12.5 Benign neoplasm of sigmoid colon; K63.89 Other specified diseases of intestine; K64.3 Fourth degree hemorrhoids; F41.9 Anxiety disorder, unspecified; F51.04 Psychophysiologic insomnia; G25.81 Restless legs syndrome; M85.88 Other specified disorders of bone density and structure, other site; Z86.010 Personal history of colon polyps; Z88.0 Allergy status to penicillin; Z88.8 Allergy status to other drugs, medicaments and biological substances; Z87.891 Personal history of nicotine dependence
CPT/HCPCS: 45380; 45385; 88305; J2704; J7120; 00812; 99100; J3490

== ENCOUNTER 2022-09-30 13:26 | Emergency (ER) | payer MEDICARE, OTHER ==
[2022-09-30] MEDS ORDERED: Sodium Chloride 0.9% 2.5 ML Syringe FLUSH PRN (14:29)
[2022-09-30] MEDS ORDERED: Sodium Chloride 0.9% 10 ML Syringe FLUSH PRN (14:29)
[2022-09-30] MEDS ORDERED: Ketorolac 30 MG/ML SDV IVPUSH ONE (14:38)
[2022-09-30] MEDS ORDERED: LORazepam 2 MG/ML SDV IVPUSH ONE (14:39)
[2022-09-30] MEDS ORDERED: Lidocaine 5% 700 MG Patch TRDERM ONE (16:25)
[2022-09-30 16:32] VITALS: BP 123/57; PULSE 66
== END 2022-09-30 16:40 | disposition home or self-care (01) ==
LOC: MW.ED 13:26
DX: M54.50 Low back pain, unspecified (principal); Z88.0 Allergy status to penicillin; Z91.048 Other nonmedicinal substance allergy status; Z88.8 Allergy status to other drugs, medicaments and biological substances
CPT/HCPCS: 72131; 74176; 96374; 96375; 99283; A9270; J1885; J2060; J3490; 99284

== ENCOUNTER 2023-01-20 13:17 | Emergency (ER) | payer MEDICARE, OTHER ==
[2023-01-20 13:28] VITALS: BP 125/82; PULSE 98
== END 2023-01-20 14:37 | disposition home or self-care (01) ==
LOC: MW.ED 13:17
DX: T18.128A Food in esophagus causing other injury, initial encounter (principal); Z88.8 Allergy status to other drugs, medicaments and biological substances; Z88.0 Allergy status to penicillin; Z91.048 Other nonmedicinal substance allergy status; Z79.899 Other long term (current) drug therapy
CPT/HCPCS: 99282

== ENCOUNTER 2023-05-02 13:00 | Emergency (ER) | payer MEDICARE, OTHER ==
[2023-05-02 13:34] VITALS: BP 148/84; PULSE 84
== END 2023-05-02 15:06 ==
LOC: MW.ED 13:00
DX: D72.829 Elevated white blood cell count, unspecified (principal); E86.0 Dehydration; R19.7 Diarrhea, unspecified; Z88.8 Allergy status to other drugs, medicaments and biological substances; Z88.0 Allergy status to penicillin; Z91.048 Other nonmedicinal substance allergy status; Z79.899 Other long term (current) drug therapy
CPT/HCPCS: 99283; 99284

== ENCOUNTER 2023-05-16 19:26 | Emergency (ER) | payer MEDICARE, OTHER ==
[2023-05-16] MEDS ORDERED: traMADol 50 MG Tab PO ONE (21:57)
[2023-05-16 23:03] VITALS: BP 119/69; PULSE 84
== END 2023-05-16 23:03 | disposition home or self-care (01) ==
LOC: MW.ED 19:26
DX: I82.612 Acute embolism and thrombosis of superficial veins of left upper extremity (principal); I80.8 Phlebitis and thrombophlebitis of other sites; C92.10 Chronic myeloid leukemia, BCR/ABL-positive, not having achieved remission; Z88.8 Allergy status to other drugs, medicaments and biological substances; Z88.6 Allergy status to analgesic agent; Z88.0 Allergy status to penicillin; Z91.048 Other nonmedicinal substance allergy status; Z79.899 Other long term (current) drug therapy
CPT/HCPCS: 36415; 80053; 83615; 85025; 93971; 99283; A9270

== ENCOUNTER 2023-07-01 19:51 | Emergency (ER) | payer MEDICARE, OTHER ==
[2023-07-01] MEDS ORDERED: Sodium Chloride 0.9% 10 ML Syringe FLUSH PRN (20:08)
[2023-07-01] MEDS ORDERED: Ondansetron 4 MG/2 ML SDV IVPUSH STA (20:09)
[2023-07-01] MEDS ORDERED: Sodium Chloride 0.9% 1,000 ML IV STA ×2 (20:09→21:10)
[2023-07-01] MEDS: Sodium Chloride 0.9% 2.5 ML Syringe FLUSH PRN ×2 (20:23→21:14)
[2023-07-01 20:25] LABS: BASOPHILS ABSOLUTE AUTO 0.02 K/uL (0.00-0.20); BASOPHILS PERCENT AUTO 0.4 % (0.0-1.0); EOSINOPHILS ABSOLUTE AUTO 0.06 K/uL (0.00-0.45); EOSINOPHILS PERCENT AUTO 1.1 % (0.0-6.0); HEMATOCRIT 36.2 % (37.0-47.0); HEMOGLOBIN 12.7 g/dL (12.0-16.0); IMMATURE GRAN ABSOLUTE AUTO 0.01 K/uL (0.00-0.05); IMMATURE GRAN PERCENT AUTO 0.2 % (0.0-0.4); LYMPHOCYTES ABSOLUTE AUTO 1.96 K/uL (1.00-4.80); LYMPHOCYTES PERCENT AUTO 35.9 % (24.0-44.0); MEAN CORPUSCULAR HGB CONC 35.1 g/dL (32.0-36.0); MEAN CORPUSCULAR VOLUME 97.1 fL (83.0-99.0); MEAN PLATELET VOLUME 9.3 fL (9.4-12.3); MONOCYTES ABSOLUTE AUTO 0.43 K/uL (0.00-0.80); MONOCYTES PERCENT AUTO 7.9 % (0.0-8.0); NEUTROPHILS ABSOLUTE AUTO 2.98 K/uL (1.80-7.70); NEUTROPHILS PERCENT AUTO 54.5 % (41.0-71.0); RED BLOOD CELL COUNT 3.73 M/uL (4.10-5.30); WHITE BLOOD CELL COUNT,WBC 5.46 K/uL (3.9-11.3)
[2023-07-01 20:46] LABS: PLATELET COUNT,PLT 55 K/uL (150-400)
[2023-07-01 20:47] LABS: ALBUMIN 3.6 g/dL (3.4-5.0); BILIRUBIN TOTAL 0.4 mg/dL (0.2-1.0); CALCIUM 7.9 mg/dL (8.5-10.1); CARBON DIOXIDE,CO2 23.2 mmol/L (21.0-32.0); EST CRCL DRUG DOSING (CG) 46.2 mL/min; POTASSIUM,K 3.1 mmol/L (3.5-5.1); PROTEIN TOTAL,TP 7.1 g/dL (6.4-8.2)
[2023-07-01] MEDS ORDERED: Potassium Chloride 20 MEQ in Premix Bag 1 BAG IV STA (21:00)
[2023-07-01 21:07] LABS: CORONAVIRUS COVID-19 NAA NEGATIVE (NEGATIVE); INFLUENZA A NAA NEGATIVE (NEGATIVE); INFLUENZA B NAA NEGATIVE (NEGATIVE)
[2023-07-01] MEDS ORDERED: Scopalamine 1mg/3day Transdermal Patch TRDERM STA (22:08)
[2023-07-01] MEDS ORDERED: Potassium Chloride 20 MEQ Tab.ER PO STA (22:25)
[2023-07-01 22:43] VITALS: BP 120/64; PULSE 70
== END 2023-07-01 22:43 | disposition home or self-care (01) ==
LOC: MW.ED 19:51
DX: K52.1 Toxic gastroenteritis and colitis (principal); D69.6 Thrombocytopenia, unspecified; T45.1X5A Adverse effect of antineoplastic and immunosuppressive drugs, initial encounter; Z20.822 Contact with and (suspected) exposure to COVID-19; Z88.6 Allergy status to analgesic agent; Z88.0 Allergy status to penicillin; Z91.048 Other nonmedicinal substance allergy status; Z90.49 Acquired absence of other specified parts of digestive tract; Z90.710 Acquired absence of both cervix and uterus
CPT/HCPCS: 0240U; 36415; 80053; 83690; 83735; 85025; 96361; 96365; 96375; 99284; A9270; J2405; J3480; J3490; J7030

== ENCOUNTER 2024-05-17 09:20 | Emergency (ER) | payer MEDICARE, OTHER ==
[2024-05-17] MEDS ORDERED: Sodium Chloride 0.9% 10 ML Syringe FLUSH PRN (10:07)
[2024-05-17] MEDS ORDERED: Sodium Chloride 0.9% 2.5 ML Syringe FLUSH PRN (10:07)
[2024-05-17 10:48] LABS: BASOPHILS ABSOLUTE AUTO 0.02 K/uL (0.00-0.20); BASOPHILS PERCENT AUTO 0.6 % (0.0-1.0); EOSINOPHILS ABSOLUTE AUTO 0.07 K/uL (0.00-0.45); HEMATOCRIT 32.1 % (37.0-47.0); HEMOGLOBIN 11.1 g/dL (12.0-16.0); IMMATURE GRAN ABSOLUTE AUTO 0.01 K/uL (0.00-0.05); IMMATURE GRAN PERCENT AUTO 0.3 % (0.0-0.4); LYMPHOCYTES ABSOLUTE AUTO 0.76 K/uL (1.00-4.80); LYMPHOCYTES PERCENT AUTO 21.5 % (24.0-44.0); MEAN CORPUSCULAR HEMOGLOBIN 33.7 pg (28.0-32.0); MEAN CORPUSCULAR HGB CONC 34.6 g/dL (32.0-36.0); MEAN CORPUSCULAR VOLUME 97.6 fL (83.0-99.0); MEAN PLATELET VOLUME 9.3 fL (9.4-12.3); MONOCYTES ABSOLUTE AUTO 0.32 K/uL (0.00-0.80); MONOCYTES PERCENT AUTO 9.1 % (0.0-8.0); NEUTROPHILS ABSOLUTE AUTO 2.35 K/uL (1.80-7.70); NEUTROPHILS PERCENT AUTO 66.5 % (41.0-71.0); PLATELET COUNT,PLT 114 K/uL (150-400); RED BLOOD CELL COUNT 3.29 M/uL (4.10-5.30); WHITE BLOOD CELL COUNT,WBC 3.53 K/uL (3.9-11.3)
[2024-05-17 11:34] LABS: A/G RATIO 1.1 (0.9-1.6); ALBUMIN 3.6 g/dL (3.4-5.0); BILIRUBIN TOTAL 0.3 mg/dL (0.2-1.0); CALCIUM 8.6 mg/dL (8.5-10.1); CREATININE 0.9 mg/dL (0.6-1.0); EST CRCL DRUG DOSING (CG) 50.56 mL/min; POTASSIUM,K 3.5 mmol/L (3.5-5.1); PROTEIN TOTAL,TP 6.8 g/dL (6.4-8.2)
[2024-05-17] MEDS: Iopamidol 755 MG/ML 500 ML Multipack Bottle IVPUSH STA (11:56)
[2024-05-17] MEDS: Aluminum Hydroxide/Magnesium Hydroxide/Simethicone Susp 30 ML Cup PO ONE (15:01)
[2024-05-17] MEDS: methylPREDNISolone Sodium Succinate 125 MG/2 ML SDV IVPUSH ONE (15:59)
[2024-05-17 16:08] VITALS: BP 127/77; PULSE 74
== END 2024-05-17 16:07 | disposition home or self-care (01) ==
LOC: MW.ED 09:20
DX: R49.0 Dysphonia (principal); R13.10 Dysphagia, unspecified; Z90.49 Acquired absence of other specified parts of digestive tract; Z90.710 Acquired absence of both cervix and uterus; Z88.0 Allergy status to penicillin; Z88.6 Allergy status to analgesic agent; Z91.048 Other nonmedicinal substance allergy status; Z79.52 Long term (current) use of systemic steroids; Z79.899 Other long term (current) drug therapy; Z75.8 Other problems related to medical facilities and other health care
CPT/HCPCS: 36415; 70491; 80053; 85025; 87428; 87651; 96374; 99284; J2919; Q9967